=== PATIENT | male | born 1995 | race Asian ===

== ENCOUNTER 2017-12-21 15:57 | Emergency (ER) | payer OTHER ==
[2017-12-21] MEDS ORDERED: predniSONE TAB* 20 MG PO ONE (16:12)
[2017-12-21] MEDS ORDERED: diPHENhydraMINE PO* 25 MG PO ONE (16:12)
[2017-12-21] MEDS ORDERED: Ondansetron ODT TAB* 4 MG SL ONE (16:14)
--- NOTE | 2017-12-21 16:19 | ED ---
Allergic Reaction/Systemic - HPI Summary HPI Summary: Pt presents today after an allergic reaction. Pt states he was eating carrots and began to feel tightness in his throat with nausea. Pt states he went to the health clinic and was given Benadryl and Epi. Pt states his tightness in his throat has resolved. Pt states now some nausea. Pt states similar reaction to carrots approximately 10 yrs ago. - History of Current Complaint Chief Complaint: EDAllergicReaction Time Seen by Provider: 12/21/17 16:08 Hx Obtained From: Patient, EMS Onset/Duration: Sudden Onset Severity Initially: Moderate Severity Currently: Mild Pain Intensity: 0 Location: Other - throat Associated Signs And Symptoms: Positive: Nausea, Throat Tightening. Negative: Abdominal Pain, Diaphoresis, Difficulty Breathing, Hoarseness, Syncope - Related Hx Possible Reaction To: Food - carrots, Other: - carrots - Allergies/Home Medications Allergies/Adverse Reactions: Allergies Allergy/AdvReac Type Severity Reaction Status Date / Time Apple Allergy Unknown Verified 12/21/17 16:06 Reaction Details Carrot Oil Allergy Unknown Verified 12/21/17 16:06 Reaction Details [place] Allergy Unknown Verified 12/21/17 16:06 Reaction Details [place] Flavor Allergy Unknown Verified 12/21/17 16:06 Reaction Details Raw [place] Allergy Unknown Uncoded 12/21/17 16:06 Reaction Details PMH/Surg Hx/FS Hx/Imm Hx Endocrine/Hematology History: Denies: Hx Anticoagulant Therapy, Hx Blood Disorders, Hx Blood Transfusions, Hx Bone Marrow Disease, Hx Diabetes, Hx Systemic Lupus Erythematosus, Hx Sickle Cell Disease, Hx Thyroid Disease, Hx Anemia, Hx Unexplained Bleeding, Hx Coagulopothy, Autoimmune Disease, Other Endocrine/Hematological Disorders Cardiovascular History: Denies: Hx Aneurysm, Hx Angina, Hx Angioplasty, Hx Atrial Fibrillation, Hx Auto Implanted Cardiovert Defib, Hx Cardiac Arrest, Hx Cardiomegaly, Hx Congenital Heart Disease, Hx Congestive Heart Failure, Hx Coronary Artery Disease, Hx Deep Vein Thrombosis, Hx Embolism, Hx Hypercholesterolemia, Hx Hypotension, Hx Hypertension, Hx Myocardial Infarction, Hx Pacemaker/ICD, Hx Peripheral Vascular Disease, Hx Rheumatic Fever, Hx Syncope, Hx Valvular Heart Disease, Hx Supraventricular Ventricular Tachycardia, Other Cardiovascular Problems/Disorders GI History: Denies: Hx Cirrhosis, Hx Crohn's Disease, Hx Diverticulosis, Hx Gall Bladder Disease, Hx Gastroesophageal Reflux Disease, Hx Gastrointestinal Bleed, Hx Hiatal Hernia, Hx Irritable Bowel, Hx Jaundice, Hx Obstructive Bowel, Hx Ileostomy, Hx Pyloric Stenosis, Hx Ulcer, Hx Urosepsis, Other GI Disorders Infectious Disease History: No Infectious Disease History: Denies: Traveled Outside the [place] in Last 30 Days - Social History Alcohol Use: None Substance Use Type: Reports: None Smoking Status (MU): Never Smoked Tobacco Review of Systems Positive: Fever Eyes: Negative ENT: Negative Cardiovascular: Negative Respiratory: Negative Gastrointestinal: Negative Musculoskeletal: Negative Neurological: Negative Psychological: Normal All Other Systems Reviewed And Are Negative: Yes Physical Exam Triage Information Reviewed: Yes Vital Signs On Initial Exam: Initial Vitals Temp Pulse Resp BP Pulse Ox 36.9 C 115 20 112/69 99 12/21/17 16:02 12/21/17 16:02 12/21/17 16:02 12/21/17 16:02 12/21/17 16:02 Vital Signs Reviewed: Yes Appearance: Positive: Well-Appearing Skin: Positive: Warm, Skin Color Reflects Adequate Perfusion, Dry, Other - mild erythema to upper back Head/Face: Positive: Normal Head/Face Inspection Eyes: Positive: Normal ENT: Positive: Normal ENT inspection, Pharynx normal. Negative: Pharyngeal erythema Neck: Positive: No Lymphadenopathy Respiratory/Lung Sounds: Positive: Clear to Auscultation, Breath Sounds Present Cardiovascular: Positive: Normal, RRR, Pulses are Symmetrical in both Upper and Lower Extremities Abdomen Description: Positive: Nontender, No Organomegaly, Soft Bowel Sounds: Positive: Present Neurological: Positive: Normal, Alert, Oriented to Person Place, Time Psychiatric: Positive: Normal Diagnostics - Vital Signs Vital Signs Temp Pulse Resp BP Pulse Ox 12/21/17 16:02 36.9 C 115 20 112/69 99 - Laboratory Lab Statement: Any lab studies that have been ordered have been reviewed, and results considered in the medical decision making process. Re-Evaluation - Re-Evaluation First Eval Re-Evaluation Time: 17:33 Comment: Pt resting comfortably in bed. pt allergic reaction resolved. Pt oropharynx clear. pt with no respiratory distress or wheezing. Allergic Reaction Course/Dx - Diagnoses Differential Diagnosis/HQI/PQRI: Positive: Airway Obstruction, Anaphylaxis, Angioedema, Bronchospasm, Local Allergic Reaction Provider Diagnoses: Allergic reaction to food Discharge - Discharge Plan Condition: Improved Disposition: HOME Prescriptions: diPHENhydraMINE PO* [Benadryl PO 25 MG TAB*] 25 mg PO Q6H PRN #20 tab PRN Reason: Itching Famotidine TAB* [Pepcid 20 MG TAB*] 20 mg PO BID #10 tab predniSONE TAB* [Deltasone TAB*] 40 mg PO DAILY #10 tab Patient Education Materials: General Allergic Reaction (ED) Referrals: Richard ELMORE,Hadley Cho [Primary Care Provider] - Additional Instructions: Please avoid carrots. Please take medicine as prescribed. Please return if symptoms worsen.
[2017-12-21 18:06] VITALS: BP 105/61
== END 2017-12-21 18:04 | disposition home or self-care (01) ==
LOC: ED 15:57
DX: T78.1XXA Other adverse food reactions, not elsewhere classified, initial encounter (principal); R11.0 Nausea; R50.9 Fever, unspecified; X58.XXXA Exposure to other specified factors, initial encounter
CPT/HCPCS: 99282; A9270-GY; J7512